=== PATIENT | male | born 1970 | race Caucasian/White ===

== ENCOUNTER → 2016-07-12 | Outpatient (CLI) | payer OTHER ==
[~2016-07-12] MED LIST: CIPRO500 MG PO; FLAGYL500 MG PO; KEPPRA500 MG PO; Keppra PO; NOHOMEMEDS; PERCOCET 5/31 TABLET PO
== END | disposition home or self-care (01) ==
LOC: RAD 08:36
DX: K56.69 Other intestinal obstruction (principal)
CPT/HCPCS: 74270

== ENCOUNTER 2017-03-08 17:19 | Emergency (ER) | payer OTHER ==
[~2017-03-08] VITALS: Ht 177.8 cm; Wt 89.2 kg
[2017-03-08 17:31] VITALS: BP 143/101
[2017-03-08 19:42] LABS: BASOPHIL (%) 0.8 % (0-1); BASOPHIL COUNT 0.1 K/uL (0-0.1); EOSINOPHIL (%) 0.1 % (0-5); HEMATOCRIT 40.1 % (38.0-50.0); HEMOGLOBIN 14.3 G/DL (12.5-16.6); IMMATURE GRANULOCYTE (%) 0.3 % (0.0-0.7); LYMPHOCYTE (%) 13.7 % (15-42); LYMPHOCYTE COUNT 2.1 K/uL (1.0-2.8); MCH 30.5 PG (29.0-34.0); MCHC 35.7 G/DL (30.0-36.0); MCV 85.5 FL (86-99); MONOCYTE (%) 10.7 % (3-12); MONOCYTE COUNT 1.6 K/uL (0-0.8); NEUTROPHIL (%) 74.4 % (45-76); NEUTROPHIL COUNT 11.4 K/uL (1.8-6.4); PLATELET COUNT 200 K/uL (156-360); RBC DIS.WIDTH-CV 12.2 % (11.8-14.6); RBC DIS.WIDTH-SD 37.7 % (39-53); RED BLOOD COUNT 4.69 M/uL (4.00-5.50); WHITE BLOOD COUNT 15.3 K/uL (4.1-10.2)
[2017-03-08 19:55] LABS: CHLORIDE 105 mEq/L (99-109); POTASSIUM 3.8 mEq/L (3.7-5.4); SODIUM 137 mEq/L (136-147)
[2017-03-08 19:56] LABS: GLUCOSE 111 mg/dL (70-99)
[2017-03-08 20:00] LABS: GFR ESTIMATE (CALCULATED) > 59 mL/min/ (58.99-99999)
[2017-03-08 20:01] LABS: UREA NITROGEN (BUN) 17 mg/dL (9-23)
[2017-03-08] MEDS ORDERED: KEFLEX500 MG PO (20:11)
[2017-03-08] MEDS ORDERED: BACTRIM,SEPT1 TABLET PO (20:11)
== END 2017-03-08 21:23 | disposition home or self-care (01) ==
LOC: EME 17:19
PROVIDERS: Physician Assistant
PROC: 0D9QXZZ Drainage of Anus, External Approach (ICD-10-PCS; principal; 2017-03-08)
DX: K61.0 Anal abscess (principal); R56.9 Unspecified convulsions; F17.200 Nicotine dependence, unspecified, uncomplicated
CPT/HCPCS: 80048; 83605; 85025; 87040; 99281; 99285; J0696